=== PATIENT | female | born 1965 | race Caucasian/White ===

== ENCOUNTER 2020-06-30 01:34 | Emergency (ER) | payer OTHER ==
[~2020-06-30] VITALS: Ht 160 cm; Wt 77.1 kg
[2020-06-30 01:46] VITALS: BP 161/90
--- NOTE | 2020-06-30 01:47 | NUR ---
To ED bed 04
--- NOTE | 2020-06-30 01:48 | NUR ---
PT TAKEN TO BED 3
--- NOTE | 2020-06-30 01:54 | NUR ---
Dr. Billingsley examining patient.
[2020-06-30] MEDS ORDERED: KETOROLAC 60 MG/2 ML VIAL IM ONE (02:00)
[2020-06-30] MEDS ORDERED: FLUORESCEIN OPTH STRIP 1 MG OP ONE (02:27)
[2020-06-30] MEDS ORDERED: TETRAHYDROZOLINE 0.05% OP 15 ML BTL OP SCH (02:27)
[2020-06-30] MEDS ORDERED: FLUORESCEIN OPTH STRIP 1 MG ONE (02:28)
[2020-06-30] MEDS ORDERED: TETRACAINE HCL/PF 0.5% OPTH 4 ML BTL ONE (02:28)
--- NOTE | 2020-06-30 02:30 | NUR ---
55 Y/O FEMALE PRESENTS TO ER S/P LEFT EYE INJURY FROM BOX X 2HRS AGO. 8/10 PAIN. 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 "PAIN ON THE INSIDE". PT HAS LIMITED LEFT EYE MOVEMENT. PT DENIES BLEEDING AFTER THE INJURY. SNELLEN TEST COMPLETED LEFT EYE: 20/200, AND RIGHT EYE 20/30. PT DENIES N/V/D, SOB, COUGH,, FEVER, CHILLS, HEADACHE. A&O X4, VSS, R/R EQUAL, AND UNLABORED. SIDE RAIL X1, HOB SEMI-ECKERT'S, BED IN LOW POSITION, WILL CONTINUE TO MONITOR. NKDA PMH: PRE HYPERTENSION
--- NOTE | 2020-06-30 02:48 | NUR ---
SNELLEN TEST COMPLETED: LEFT EYE 20/200; RIGHT EYE 20/30 ERMD MADE AWARE
[2020-06-30] MEDS ORDERED: TOMOMETER 1 DEV DEV MC ONE (03:33)
[2020-06-30 03:54] VITALS: BP 161/90
--- NOTE | 2020-06-30 03:56 | NUR ---
Patient discharged with v/s stable. Written and verbal after care instructions given and explained. Patient alert, oriented and verbalized understanding of instructions. Ambulatory with steady gait. All questions addressed prior to discharge. ID band removed. Patient advised to follow up with PMD. Rx of GARAMYCIN; MOTRIN given. Patient educated on indication of medication including possible reaction and side effects. Opportunity to ask questions provided and answered.
== END 2020-06-30 03:56 | disposition home or self-care (01) ==
LOC: MED 01:34
DX: S00.212A Abrasion of left eyelid and periocular area, initial encounter (principal); R03.0 Elevated blood-pressure reading, without diagnosis of hypertension; W22.8XXA Striking against or struck by other objects, initial encounter; Y93.89 Activity, other specified; Y92.89 Other specified places as the place of occurrence of the external cause; Y99.8 Other external cause status
CPT/HCPCS: 70480; 96372; 99284; J1885